=== PATIENT | male | born 1955 | race African-American/Black ===

== ENCOUNTER 2019-05-06 07:20 | Emergency (ER) | payer BC ==
[~2019-05-06] VITALS: Ht 177.8 cm; Wt 77.1 kg
[2019-05-06 07:28] VITALS: Ht 177.8 cm; Wt 77.1 kg
[2019-05-06 07:56] LABS: BASOPHIL % 0.2 % (0-2); PLATELET COUNT 373 x10^3mcL (130-400)
[2019-05-06 08:15] LABS: CALCIUM 9.7 mg/dL (8.5-10.1); CARBON DIOXIDE 28.9 mmol/L (21-32); CHLORIDE SERUM 107 mmol/L (98-107); GFR1 > 60 mL/min; GLUCOSE SERUM 127 mg/dL (74-106); POTASSIUM SERUM 3.4 mmol/L (3.5-5.1); SODIUM SERUM 148 mmol/L (136-145)
[2019-05-06 08:20] LABS: ALKALINE PHOSPHATASE 78 U/L (46-116); ALT/SGPT 20 U/L (16-63); AST/SGOT 12 U/L (15-37); BILIRUBIN TOTAL 0.43 mg/dL (0.20-1.00); TOTAL PROTEIN, SERUM 7.3 g/dL (6.4-8.2)
[2019-05-06 08:25] LABS: RED CELL DISTRIBUTION WIDTH 15.1 % (11.5-14.5)
[2019-05-06 08:37] LABS: ALBUMIN 2.6 g/dL (3.4-5.0)
[2019-05-06 11:00] VITALS: BP 162/102
== END 2019-05-06 11:00 | disposition home or self-care (01) ==
LOC: ED 07:20
PROVIDERS: Emergency Medicine
DX: I10 Essential (primary) hypertension (principal); Z13.9 Encounter for screening, unspecified; R73.9 Hyperglycemia, unspecified; F17.210 Nicotine dependence, cigarettes, uncomplicated
CPT/HCPCS: 36415; 99406